=== PATIENT | female | born 1945 | race Caucasian/White ===

== ENCOUNTER 2017-05-20 00:35 | Inpatient (IN) | payer MEDICARE, MEDICAID ==
[2017-05-20] MEDS ORDERED: Fleet Enema 135 mL RC PRN (01:09)
[2017-05-20] MEDS ORDERED: Magnesium Hydroxide (MOM) 30 mL UDC PO PRN (01:09)
[2017-05-20 01:20] VITALS: BP 153/85
--- NOTE | 2017-05-21 02:15 | Psychosocial Evaluation ---
DATE OF SERVICE: 05/20/2017 IDENTIFYING DATA: The patient is a 72-year-old woman living by herself. Information obtained by directly interviewing the patient, as well as reviewing the admission papers. JUSTIFICATION FOR HOSPITALIZATION: The patient is admitted here from _[facility] a voluntary basis in view of her acute agitation, psychosis, and depression. CHIEF COMPLAINT: "This is a long story and they have been trying to take away my money and I cannot do like this." HISTORY OF PRESENT ILLNESS: This is the first psychiatric hospitalization to [facility] for this patient who is reported to have been very depressed and agitated, and has been worrying about her son taking away all her social security money. The patient is feeling frustrated. The patient has been taken to __[facility] for poor eating and sleep patterns, and has been medically cleared and transferred over here for further stabilization. During the evaluation, the patient is reporting that she was taking her psych medications, but the patient has been stating that the medication has been making her too sleepy and dizzy and hence stopped taking the medications. Sleep and appetite prior to the hospitalization are reported to be very poor. PAST PSYCHIATRIC HISTORY: Details are not known. MEDICAL HISTORY: Physical examination as requested done by Dr. Susan Tejeda. SUBSTANCE ABUSE HISTORY: None. PHYSICAL OR SEXUAL ABUSE HISTORY: None. LEGAL PROBLEMS: None at this time. STRENGTH AND ASSETS: The patient is motivated. MENTAL STATUS EXAMINATION: The patient is a 72-year-old woman looking her stated age, cooperative. Eye contact is fair. Mood is a little bit depressed. Affect is constricted. The patient has paranoia, but denies any command hallucinations. The patient's insight and judgment at this time are noted to be impaired. Impulse control is noted to be poor. The patient's short term memory is noted to be poor. Long-term memory seems to be fair at this time. The patient's coping skills at this time are noted to be very poor. DIAGNOSTIC IMPRESSION: AXIS I: 1. Psychosis, not otherwise specified. 2. Depressive disorder, not otherwise specified. 3. Dementia. AXIS II: None. AXIS III: As per Dr. Tejeda. IMMEDIATE TREATMENT PLAN: The patient is going to be observed on inpatient unit, provided with supportive psychotherapy. The patient is going to be started on 12.5 mg of the Seroquel at bedtime. The patient is going to be encouraged to participate in the groups and verbalize the concerns. Once stabilized, the patient is going to be discharged to self to be followed up on an outpatient basis. JOB# [id number]
--- NOTE | 2017-05-21 09:22 | Psych Progress Note ---
Psych Progress Note - Intro Date of Progress Note: 05/21/17 - Assessment Assessment: I am anxious. - Vitals, I&O Vitals: Vital Signs - 24 hr 05/20/17 05/21/17 05/21/17 12:33 07:13 09:15 Temp 98.1 F HR 88 98 78 RR 18 BP 147/68 109/52 109/52 O2 Sat % 97 I&O: Intake & Output 05/19/17 05/20/17 05/21/17 05/22/17 06:59 06:59 06:59 06:59 Weight (lbs) 55.338 kg - ROS Psychological ROS: Report: Anxiety, Depression, Memory difficulties, Sleep Disturbances Neurological: Report: Confusion - Objective Psych General Appearance: Report: No acute distress, Roughly stated age, Casually dressed Psych Behavior: Report: Alert, Calm, Cooperative Psych Speech: Report: Normal in Rate and amount Psych Mood: Report: Anxious, Depressed Psych Affect: Report: Anxious, Mood-congruent, Sad Psych Thought Process: Report: Paranoid, Confabulation Psych Cognition: Report: Short term memory impairment Psych Insight: Report: Impaired Psych Judgement: Report: Impaired - Plan Plan: To continue Seroquel and follow up with supportive therapy. - Review of Relevant Data Review of Relevant Data: I have reviewed the following items and time rikki (where applicable) has been applied. Psych Data Reviewed: Meds - Diagnosis Diagnosis: Psychosis-Unspecified. - Medications Current Medications: Current Medications Acetaminophen (Tylenol) 650 mg PO Q6H PRN PRN Reason: Mild Pain/Headache/T above 101 Stop: 07/19/17 01:08 Last Admin: 05/20/17 17:33 Dose: 650 mg Acetaminophen (Tylenol) 650 mg PO Q4HR PRN PRN Reason: Pain or Fever >101 Stop: 07/19/17 09:51 Clonidine HCl (Catapres) 0.1 mg PO Q6HR PRN PRN Reason: SCP>160 Stop: 07/19/17 09:50 Lisinopril (Zestril) 5 mg PO DAILY HENRI Stop: 07/19/17 09:59 Last Admin: 05/21/17 09:15 Dose: 5 mg Lorazepam (Ativan) 1 mg PO Q6H PRN; Protocol PRN Reason: Anxiety/Agitation Stop: 07/19/17 01:08 Magnesium Hydroxide (Milk Of Magnesia) 30 ml PO HS PRN PRN Reason: Constipation Stop: 07/19/17 01:08 Ondansetron HCl (Zofran Odt) 4 mg PO Q6H PRN PRN Reason: Nausea / Vomiting Stop: 07/19/17 01:08 Last Admin: 05/20/17 03:49 Dose: 4 mg Quetiapine Fumarate (Seroquel) 25 mg PO HS HENRI PRN Reason: Protocol Stop: 07/19/17 20:59 Last Admin: 05/20/17 21:28 Dose: 25 mg Sodium Phosphate (Fleet Enema) 135 ml RC DAILY PRN PRN Reason: Constipation Stop: 07/19/17 01:08 Zolpidem Tartrate (Ambien) 5 mg PO HS PRN PRN Reason: Insomnia Stop: 07/19/17 01:08
[2017-05-21] MEDS ORDERED: Bismuth Subsalicylate 236mL PO PRN (10:04)
[2017-05-21] MEDS ORDERED: Pantoprazole 40 mg EC Tab PO PRN (10:06)
[2017-05-21 10:58] LABS: % BASOPHILS 0.2 % (0.0-2.0); % LYMPHOCYTES 27.5 % (20.0-50.0); % MONOCYTES 7.2 % (2.0-10.0); % NEUTROPHILS 64.1 % (40.0-80.0); HEMATOCRIT 43.5 % (35.0-45.0); HEMOGLOBIN 14.5 gm/dL (11.7-16.1); MEAN CELL VOLUME 90.6 fl (81-100); MEAN CORPUSCULAR HEMOGLOBIN 30.3 pg (27.0-31.0); MEAN CORPUSCULAR HGB CONC 33.4 pg (28.0-36.0); MEAN PLATELET VOLUME 7.9 fl; NEUTROPHILE ABSOLUTE 6.7 Th/cmm (1.8-8.0); PLATELET COUNT 348 Th/cmm (150-400); RED CELL DISTRIBUTION WIDTH 12.6 % (11.5-20.0); WHITE BLOOD COUNT 10.4 Th/cmm (4.8-10.8)
[2017-05-21 11:18] LABS: ANION GAP 6.5 (7.0-16.0); BUN - UREA NITROGEN 20 mg/dL (7-25); BUN/CREATININE RATIO 28.6; CARBON DIOXIDE 25.6 mEq/L (21.0-31.0); CHLORIDE 108 mEq/L (98-107); CHOLESTEROL 127 mg/dL (<200); CREATININE - SERUM 0.7 mg/dL (0.6-1.2); GLUCOSE 97 mg/dL (70-105); MAGNESIUM 2.1 mg/dL (1.9-2.7); POTASSIUM SERUM 4.1 mEq/L (3.5-5.1); SODIUM SERUM 136 mEq/L (136-145); TRIGLYCERIDES 349 mg/dL (<150)
--- NOTE | 2017-05-22 19:10 | Progress Notes ---
DATE: 05/22/2017 PSYCHIATRIC PROGRESS NOTE TIME PATIENT SEEN: 01:00 p.m. SUBJECTIVE: Staff was spoken to. The patient is interviewed. Mood is noted to be depressed. Affect is constricted. The patient is isolative and withdrawn. Coping skills are noted to be very poor. Sleep and appetite are also noted to be poor. The patient feels frustrated. The patient is stating that her son is the one that has been creating all the problems and has been taking away all her money and she . ASSESSMENT: The patient is still depressed and paranoid. PLAN: To continue the patient with supportive therapy. I encouraged the patient to verbalize the concerns rather than to act out. [facility]# [id number]
--- NOTE | 2017-05-23 14:27 | Psych Progress Note ---
Psych Progress Note - Intro Date of Progress Note: 05/23/17 - Assessment Assessment: I am anxious. - Vitals, I&O Vitals: Vital Signs - 24 hr 05/23/17 05/23/17 05/23/17 06:49 08:00 09:52 Temp 96.9 F HR 67 67 HR [Left Radial 67 ] RR 19 19 BP 97/56 97/56 O2 Sat % 98 I&O: Intake & Output 05/21/17 05/22/17 05/23/17 05/24/17 06:59 06:59 06:59 06:59 Intake Total 800 1200 Balance 800 1200 - ROS Psychological ROS: Report: Anxiety, Depression, Memory difficulties Neurological: Report: Confusion, Memory Loss - Objective Psych General Appearance: Report: No acute distress, Roughly stated age, Casually dressed Psych Behavior: Report: Alert, Calm, Cooperative Psych Speech: Report: Normal in Rate and amount Psych Mood: Report: Anxious, Depressed Psych Affect: Report: Anxious, Mood-congruent, Sad Psych Thought Process: Report: Paranoid, Confabulation Psych Cognition: Report: Short term memory impairment Psych Insight: Report: Impaired Psych Judgement: Report: Impaired - Plan Plan: To continue Seroquel and follow up with supportive therapy. - Review of Relevant Data Review of Relevant Data: I have reviewed the following items and time rikki (where applicable) has been applied. Psych Data Reviewed: Meds - Diagnosis Diagnosis: Psychosis-Unspecified. - Medications Current Medications: Current Medications Acetaminophen (Tylenol) 650 mg PO Q6H PRN PRN Reason: Mild Pain/Headache/T above 101 Stop: 07/19/17 01:08 Last Admin: 05/23/17 05:26 Dose: 650 mg Acetaminophen (Tylenol) 650 mg PO Q4HR PRN PRN Reason: Pain or Fever >101 Stop: 07/19/17 09:51 Last Admin: 05/23/17 14:08 Dose: 650 mg Bismuth Subsalicylate (Pepto-Bismol) 10 ml PO Q6HR PRN PRN Reason: GI DISTRESS Stop: 07/20/17 10:03 Last Admin: 05/21/17 14:05 Dose: 10 ml Clonidine HCl (Catapres) 0.1 mg PO Q6HR PRN PRN Reason: SCP>160 Stop: 07/19/17 09:50 Lisinopril (Zestril) 5 mg PO DAILY HENRI Stop: 07/19/17 09:59 Last Admin: 05/23/17 09:52 Dose: Not Given Lorazepam (Ativan) 1 mg PO Q6H PRN; Protocol PRN Reason: Anxiety/Agitation Stop: 07/19/17 01:08 Magnesium Hydroxide (Milk Of Magnesia) 30 ml PO HS PRN PRN Reason: Constipation Stop: 07/19/17 01:08 Ondansetron HCl (Zofran Odt) 4 mg PO Q6H PRN PRN Reason: Nausea / Vomiting Stop: 07/19/17 01:08 Last Admin: 05/20/17 03:49 Dose: 4 mg Pantoprazole Sodium (Protonix) 40 mg PO DAILY PRN PRN Reason: Abdominal Pain Stop: 07/20/17 10:14 Quetiapine Fumarate (Seroquel) 25 mg PO HS HENRI PRN Reason: Protocol Stop: 07/19/17 20:59 Last Admin: 05/22/17 21:01 Dose: 25 mg Sodium Phosphate (Fleet Enema) 135 ml RC DAILY PRN PRN Reason: Constipation Stop: 07/19/17 01:08 Zolpidem Tartrate (Ambien) 5 mg PO HS PRN PRN Reason: Insomnia Stop: 07/19/17 01:08 Last Admin: 05/22/17 21:01 Dose: 5 mg
--- NOTE | 2017-05-24 00:26 | Admit Criteria Form ---
Admit Criteria Forms - Admit Criteria Diagnosis: PSYCHIATRIC DISORDERS (Place 'X' for any and all applicable criteria): Ongoing inpatient care may be needed for 1 or more of the following(1)(2)(3)(4)( 6)(7)(8): [ ]I. Danger to self or others not manageable at lower level of care. [ ]II. Grave disability (eg, inability to perform self care necessary at lower level of care) [X ]III. Agitation or inappropriate behavior interfering with care for primary condition (eg, attempting to discontinue lines or drains prematurely, unable to cooperate with respiratory care) [ ]IV. Severe disability or disorder indicated by ALL of the following: [ ]a) Severe behavioral health disorder-related symptoms or condition indicated by 1 or more of the following: [ ]i) Severe problem with cognition, memory, judgment, or impulse control [ ]ii) Severe clinical manifestations (eg, hallucinations, delusions, other acute psychotic symptoms, pamela, extreme agitation or anxiety) [ ]b) Patient management at lower level of care is not feasible until acute intervention or modification is initiated. Extended stay beyond goal length of stay for the primary condition may be needed until ALLof the following are present(1)(2)(3)(4)(722)(23): [ ]a) Danger to self or others is absent or manageable at lower level of care [ ]b) Behavior crisis management, including physical or chemical restraints, is required and is not available at a lower level of care. [ ]c) Behavioral symptoms (e.g., agitation, somnolence, inappropriate behavior) are present, and are not manageable at a lower level of care. [ ]d) Patient cannot understand follow-up treatment and crisis plan. [ ]e) Provider and supports are sufficiently available at lower level of care. [ ]f) Patient can participate (e.g., verify absence of plan for harm) and is in needed of monitoring. The original [facility] [id number] content created by [facility] [employer] has been revised. The portions of the content which have been revised are identified through the use of italic text or in bold, and [facility] [employer] has neither reviewed nor approved the modified material. All other unmodified content is copyright [facility]. Please see references footnoted in the original [facility] edition 2017 Admit Criteria Met?: Yes
--- NOTE | 2017-05-24 18:35 | Psych Progress Note ---
Psych Progress Note - Intro Date of Progress Note: 05/24/17 - Assessment Assessment: I am depressed. I need to go home. - Vitals, I&O Vitals: Vital Signs - 24 hr 05/23/17 05/24/17 05/24/17 20:19 05:30 08:31 Temp 97.5 F 97.3 F HR 77 68 68 RR 20 19 BP 138/69 114/61 114/61 O2 Sat % 98 98 05/24/17 15:07 Temp 97.5 F HR 66 RR 18 BP 121/63 O2 Sat % 98 I&O: Intake & Output 05/22/17 05/23/17 05/24/17 05/25/17 06:59 06:59 06:59 06:59 Intake Total 800 1200 1000 Balance 800 1200 1000 - ROS Psychological ROS: Report: Anxiety, Depression, Memory difficulties Neurological: Report: Confusion, Memory Loss - Objective Psych General Appearance: Report: No acute distress, Roughly stated age, Casually dressed Psych Behavior: Report: Alert, Calm, Cooperative Psych Speech: Report: Normal in Rate and amount Psych Mood: Report: Anxious, Depressed Psych Affect: Report: Anxious, Mood-congruent, Sad Psych Thought Process: Report: Paranoid, Confabulation Psych Cognition: Report: Short term memory impairment Psych Insight: Report: Impaired Psych Judgement: Report: Impaired - Plan Plan: To continue Seroquel and follow up with supportive therapy.Plan to add low dose of Lexapro. - Review of Relevant Data Review of Relevant Data: I have reviewed the following items and time rikki (where applicable) has been applied. Psych Data Reviewed: Meds - Diagnosis Diagnosis: Psychosis-Unspecified. - Medications Current Medications: Current Medications Acetaminophen (Tylenol) 650 mg PO Q4HR PRN PRN Reason: mild pain/headac or fever >101 Stop: 07/19/17 09:51 Last Admin: 05/24/17 15:44 Dose: 650 mg Bismuth Subsalicylate (Pepto-Bismol) 10 ml PO Q6HR PRN PRN Reason: GI DISTRESS Stop: 07/20/17 10:03 Last Admin: 05/21/17 14:05 Dose: 10 ml Clonidine HCl (Catapres) 0.1 mg PO Q6HR PRN PRN Reason: SCP>160 Stop: 07/19/17 09:50 Lisinopril (Zestril) 5 mg PO DAILY HENRI Stop: 07/19/17 09:59 Last Admin: 05/24/17 08:31 Dose: 5 mg Lorazepam (Ativan) 1 mg PO Q6H PRN; Protocol PRN Reason: Anxiety/Agitation Stop: 07/19/17 01:08 Last Admin: 05/24/17 15:44 Dose: 1 mg Magnesium Hydroxide (Milk Of Magnesia) 30 ml PO HS PRN PRN Reason: Constipation Stop: 07/19/17 01:08 Ondansetron HCl (Zofran Odt) 4 mg PO Q6H PRN PRN Reason: Nausea / Vomiting Stop: 07/19/17 01:08 Last Admin: 05/20/17 03:49 Dose: 4 mg Pantoprazole Sodium (Protonix) 40 mg PO DAILY PRN PRN Reason: Abdominal Pain Stop: 07/20/17 10:14 Quetiapine Fumarate (Seroquel) 25 mg PO HS HENRI PRN Reason: Protocol Stop: 07/19/17 20:59 Last Admin: 05/23/17 21:42 Dose: 25 mg Sodium Phosphate (Fleet Enema) 135 ml RC DAILY PRN PRN Reason: Constipation Stop: 07/19/17 01:08 Zolpidem Tartrate (Ambien) 5 mg PO HS PRN PRN Reason: Insomnia Stop: 07/19/17 01:08 Last Admin: 05/23/17 21:42 Dose: 5 mg
[2017-05-25] MEDS: Escitalopram Oxalate 5 mg Tab PO SCH (08:30)
--- NOTE | 2017-05-25 10:39 | Psych Progress Note ---
Psych Progress Note - Intro Date of Progress Note: 05/25/17 - Assessment Assessment: I am depressed. My heernia is bothering me. - Vitals, I&O Vitals: Vital Signs - 24 hr 05/24/17 05/24/17 05/24/17 15:07 20:00 20:44 Temp 97.5 F 97.9 F HR 66 86 RR 18 20 20 BP 121/63 98/53 O2 Sat % 98 95 05/25/17 05:52 Temp 98.3 F HR 67 RR 19 BP 98/68 O2 Sat % 95 I&O: Intake & Output 05/23/17 05/24/17 05/25/17 05/26/17 06:59 06:59 06:59 06:59 Intake Total 1200 1000 1600 Balance 1200 1000 1600 - ROS Psychological ROS: Report: Anxiety, Depression, Memory difficulties Neurological: Report: Confusion, Memory Loss - Objective Psych General Appearance: Report: No acute distress, Roughly stated age, Casually dressed Psych Behavior: Report: Alert, Calm, Cooperative Psych Speech: Report: Normal in Rate and amount Psych Mood: Report: Anxious, Depressed Psych Affect: Report: Anxious, Mood-congruent, Sad Psych Thought Process: Report: Paranoid, Confabulation Psych Cognition: Report: Short term memory impairment Psych Insight: Report: Impaired Psych Judgement: Report: Impaired - Plan Plan: To continue Seroquel and follow up with supportive therapy.Plan to add low dose of Lexapro. - Review of Relevant Data Review of Relevant Data: I have reviewed the following items and time rikki (where applicable) has been applied. - Diagnosis Diagnosis: Psychosis-Unspecified. - Medications Current Medications: Current Medications Acetaminophen (Tylenol) 650 mg PO Q4HR PRN PRN Reason: mild pain/headac or fever >101 Stop: 07/19/17 09:51 Last Admin: 05/25/17 02:12 Dose: 650 mg Bismuth Subsalicylate (Pepto-Bismol) 10 ml PO Q6HR PRN PRN Reason: GI DISTRESS Stop: 07/20/17 10:03 Last Admin: 05/21/17 14:05 Dose: 10 ml Clonidine HCl (Catapres) 0.1 mg PO Q6HR PRN PRN Reason: SCP>160 Stop: 07/19/17 09:50 Escitalopram Oxalate (Lexapro) 5 mg PO DAILY HENRI PRN Reason: Protocol Stop: 07/24/17 08:59 Lisinopril (Zestril) 5 mg PO DAILY HENRI Stop: 07/19/17 09:59 Last Admin: 05/24/17 08:31 Dose: 5 mg Lorazepam (Ativan) 1 mg PO Q6H PRN; Protocol PRN Reason: Anxiety/Agitation Stop: 07/19/17 01:08 Last Admin: 05/24/17 15:44 Dose: 1 mg Magnesium Hydroxide (Milk Of Magnesia) 30 ml PO HS PRN PRN Reason: Constipation Stop: 07/19/17 01:08 Ondansetron HCl (Zofran Odt) 4 mg PO Q6H PRN PRN Reason: Nausea / Vomiting Stop: 07/19/17 01:08 Last Admin: 05/20/17 03:49 Dose: 4 mg Pantoprazole Sodium (Protonix) 40 mg PO DAILY PRN PRN Reason: Abdominal Pain Stop: 07/20/17 10:14 Quetiapine Fumarate (Seroquel) 25 mg PO HS HENRI PRN Reason: Protocol Stop: 07/19/17 20:59 Last Admin: 05/24/17 21:25 Dose: 25 mg Sodium Phosphate (Fleet Enema) 135 ml RC DAILY PRN PRN Reason: Constipation Stop: 07/19/17 01:08 Zolpidem Tartrate (Ambien) 5 mg PO HS PRN PRN Reason: Insomnia Stop: 07/19/17 01:08 Last Admin: 05/24/17 21:29 Dose: 5 mg
[2017-05-26] MEDS: Escitalopram Oxalate 5 mg Tab PO SCH (08:12)
--- NOTE | 2017-05-26 23:21 | Progress Notes ---
DATE: 05/26/2017 PSYCHIATRIC PROGRESS NOTE TIME PATIENT SEEN: 5:15 p.m. SUBJECTIVE: Staff was spoken to. The patient is interviewed. Mood is depressed. Affect is constricted. The patient is isolative and withdrawn. Insight and judgment are noted to be still impaired. Impulse control seems to be poor. Coping skills are also noted to be poor. The patient is currently on Lexapro 5 mg. PLAN: To increase the Lexapro to 10 mg and continue his Seroquel 25 mg at bedtime and encouraged the patient to verbalize the concerns rather than to act out. The patient is not ready to be discharged to a lower level of care because of her depression and paranoia. [facility]# [id number]
--- NOTE | 2017-05-27 12:00 | Progress Notes ---
DATE: 05/27/2017 PSYCHIATRIC PROGRESS NOTE TIME PATIENT SEEN: 7:30 a.m. SUBJECTIVE: Staff was spoken to. The patient is interviewed. Mood is noted to be anxious and depressed. Affect is constricted. Insight and judgment are noted to be still impaired. Impulse control seems to be limited. The patient is currently on Lexapro and Seroquel and has been able to tolerate the medication. ASSESSMENT: The patient is still depressed. PLAN: To continue the patient with the supportive therapy. I encouraged the patient to verbalize the concerns rather than to act out. The patient is not ready to be discharged to a lower level of care yet. JOB# [id number]
[2017-05-27] MEDS ORDERED: Magnesium Hydroxide (MOM) 30 mL UDC PO PRN (13:36)
--- NOTE | 2017-05-29 00:44 | Progress Notes ---
DATE: 05/28/2017 SUBJECTIVE: The patient was seen, chart reviewed, discussed with staff. The patient is still irritable, anxious. Some depression noted, remains isolative at times. Insight still limited, judgment is impaired. The patient currently is taking Lexapro and dose was recently increased. The patient continues to have some paranoia. ASSESSMENT: We will continue hospitalization. Continue to monitor closely. Continue stabilization. [facility]# [id number]
[2017-05-29] MEDS: Pantoprazole 40 mg EC Tab PO SCH (06:46)
[2017-05-29] MEDS: Fenofibrate, Micronized 134 mg Cap PO SCH (15:00)
--- NOTE | 2017-05-29 21:01 | Progress Notes ---
DATE: 05/29/2017 ATTENDING PHYSICIAN: Dr. Naqvi. SUBJECTIVE: I met this patient. Remains anxious, angry, still has some paranoia, irritability, insight is poor and judgment is impaired, p.o. intake is fair and being monitored closely by staff. ASSESSMENT: The patient is still depressed and anxious, still lacks ability to care for herself. PLAN: We will continue hospitalization. Continue stabilization. Continue to monitor closely. JOB# [id number]
[2017-05-30] MEDS: Pantoprazole 40 mg EC Tab PO SCH (06:30)
[2017-05-30] MEDS: Fenofibrate, Micronized 134 mg Cap PO SCH (10:19)
--- NOTE | 2017-05-31 02:17 | Progress Notes ---
DATE: 05/30/2017 SUBJECTIVE: The patient was seen, discussed with staff, remains disorganized, anxious, still guarded, paranoid, some anger outbursts. The patient, however, is eating well and she is taking her medications. The patient's affect remains depressed and dysphoric. ASSESSMENT: The patient continues to require hospitalization because of impulsivity and depression and anger outburst. PLAN: Continue hospitalization. Continue supportive measures. Continue medication management. [facility]# [id number]
[2017-05-31] MEDS: Fenofibrate, Micronized 134 mg Cap PO SCH (08:58)
[2017-05-31] MEDS: Pantoprazole 40 mg EC Tab PO SCH (09:00)
--- NOTE | 2017-05-31 21:13 | Progress Notes ---
DATE: 05/31/2017 PSYCHIATRIC PROGRESS NOTE TIME PATIENT SEEN: 9:45 a.m. SUBJECTIVE: Staff was spoken to. The patient is interviewed. I am trying my best on ____. The patient is alert and oriented. Mood is noted to be anxious. The patient has been reported to have a pending ____ report and patient has nothing to do with her children. They do not want to come and then participate in any of the groups. cupola worker is mentioning that the patient needs to be placed. The patient's coping skills at this time are noted to be very poor. The patient is currently on Lexapro and Seroquel and has been able to tolerate the medications. ASSESSMENT: The patient is still having difficult time to cope with the stress. PLAN: To continue the patient with the current medications and followup. JOB# [id number]
[2017-06-01] MEDS: Pantoprazole 40 mg EC Tab PO SCH (06:51)
[2017-06-01] MEDS: Fenofibrate, Micronized 134 mg Cap PO SCH (08:58)
--- NOTE | 2017-06-01 23:32 | Progress Notes ---
DATE: 06/01/2017 PSYCHIATRIC PROGRESS NOTE TIME PATIENT SEEN: 4:15 p.m. Staff was spoken to. The patient is interviewed. Mood is noted to be dysphoric. Coping skills are noted to be poor. The patient is stating that she has been doing a little bit better and needs to get out of here. The patient, however, has an APS report that is pending and she cannot return home. The patient has been getting easily frustrated. The patient is currently on 25 mg of the Seroquel and 10 mg of Lexapro and has been able to tolerate the medication. ASSESSMENT: The patient is still depressed and awaiting placement. PLAN: To continue the patient with the current medications and follow. JOB# [id number]
[2017-06-02] MEDS: Pantoprazole 40 mg EC Tab PO SCH (06:37)
[2017-06-02] MEDS: Fenofibrate, Micronized 134 mg Cap PO SCH (08:45)
--- NOTE | 2017-06-02 20:54 | Progress Notes ---
DATE: 06/02/2017 PSYCHIATRIC PROGRESS NOTE TIME PATIENT SEEN: 4:15 p.m. SUBJECTIVE: Staff was spoken to. The patient is interviewed. Mood is noted to be anxious. The patient is stating that she could not figure it out why she has been held in here. The patient has been explained about the hold from the Adult Protective Services. manager procurement is looking for placement and it has to be approved by the APS. The patient has been able to tolerate the antidepressant medications and the low dose of antipsychotic medications. No side effects to medications are noted. The patient's sleep is noted to be improving. ASSESSMENT: The patient is anxious and depressed. PLAN: To continue the patient with the current medications and followup. JOB# [id number]
[2017-06-03] MEDS: Pantoprazole 40 mg EC Tab PO SCH (06:38)
[2017-06-03] MEDS: Fenofibrate, Micronized 134 mg Cap PO SCH (09:08)
--- NOTE | 2017-06-06 14:42 | Discharge Summary ---
DATE OF DISCHARGE: 06/03/2017 IDENTIFYING DATA: The patient is a 72-year-old woman living by herself. JUSTIFICATION OF HOSPITALIZATION: The patient is admitted on a voluntary basis in view of her acute agitation and psychosis. CHIEF COMPLAINT: "This is a long story, they have been trying to take away my money and I cannot function like this." DIAGNOSES AT THE TIME OF ADMISSION: AXIS 1: A. Psychosis, not otherwise specified. B. Depressive disorder, not otherwise specified. C. Dementia. AXIS II: None. AXIS III: As per Dr. Tejeda. HISTORY OF PRESENT ILLNESS: Please refer to the 05/21/2017 dictation done by me. Physical examination was done by Dr. Tejeda and is noted to be within normal limits. Lab studies done during the hospitalization have been reviewed and they are also noted to be within normal limits. HOSPITAL COURSE AND RESPONSE TO TREATMENT: The patient has been placed on the Seroquel, which was gradually increased to 25 mg twice a day and the patient also has been given the zolpidem on a p.r.n. basis. The patient has been encouraged to participate in the groups and verbalize the concerns. The patient has been treated for high blood pressure and escitalopram 10 mg has been given for her depression. With these medications, the patient has been doing fairly well and the patient was finally discharged to the [facility] with recommendation that she is going to be seeking treatment on an outpatient basis. MENTAL STATUS EXAMINATION: At the time of discharge is noted to be stable and the patient is not noted to be a danger to self or others at the time of discharge. CONDITION: At the time of discharge noted to be stable. The patient has been noted to be even to participate in the groups and verbalize the concerns. DIAGNOSES AT THE TIME OF DISCHARGE: AXIS: A. Psychotic disorder, not otherwise specified. B. Depressive disorder, not otherwise specified. C. Dementia and behavioral change, secondary trait. AFTERCARE PLAN: The patient is discharged to [facility] to be followed up on an outpatient basis. PROGNOSIS: At the time of discharge is noted to be fair with the treatment. [facility]# [id number]
== END 2017-06-03 15:30 | DRG 885 ==
LOC: GERO 00:35
PROVIDERS: ADMIT Psychiatry & Neurology Psychiatry; ATTEND Psychiatry & Neurology Psychiatry
DX: F29 Unspecified psychosis not due to a substance or known physiological condition (principal); F03.91 Unspecified dementia, unspecified severity, with behavioral disturbance; F32.3 Major depressive disorder, single episode, severe with psychotic features; F41.9 Anxiety disorder, unspecified; I10 Essential (primary) hypertension; K44.9 Diaphragmatic hernia without obstruction or gangrene; R45.87 Impulsiveness; Z87.440 Personal history of urinary (tract) infections
CPT/HCPCS: 36415-UA; 80048-TC; 80061-TC; 82948-90; 83735-TC; 84443-TC; 85025-TC; 90899; G0410; Q0162; Z7610